=== PATIENT | male | born 1955 | race Caucasian/White ===

== ENCOUNTER 2021-09-14 18:22 | Emergency (ER) | payer MEDICARE ==
[2021-09-14] MEDS ORDERED: Ibuprofen 600 MG Tab PO ONE (18:38)
[2021-09-14] MEDS ORDERED: Acetaminophen/HYDROcodone 325-5 MG Tab PO ONE (18:39)
== END 2021-09-14 19:23 | disposition home or self-care (01) ==
LOC: JP.ED 18:22
DX: T23.251A Burn of second degree of right palm, initial encounter (principal); Z88.5 Allergy status to narcotic agent; X15.0XXA Contact with hot stove (kitchen), initial encounter
CPT/HCPCS: 99283; A9270

== ENCOUNTER 2023-02-10 05:52 | Day surgery (SDC) | payer MEDICARE ==
[2023-02-10] MEDS ORDERED: Dextrose 5%-Lactated Ringers 1,000 ML IV SCH (06:30)
[2023-02-10] MEDS ORDERED: fentaNYL 50 MCG/ML SDV ONE (06:55)
[2023-02-10] MEDS ORDERED: Midazolam 1 MG/ML 2 ML SDV ONE (06:55)
[2023-02-10] MEDS ORDERED: Propofol 200 MG/20 ML SDV ONE (06:55)
== END 2023-02-10 08:53 | disposition home or self-care (01) ==
LOC: JP.SDS 05:52
PROVIDERS: ATTEND Surgery
DX: K20.90 Esophagitis, unspecified without bleeding (principal); K22.89 Other specified disease of esophagus; K22.70 Barrett's esophagus without dysplasia; K44.9 Diaphragmatic hernia without obstruction or gangrene; J44.9 Chronic obstructive pulmonary disease, unspecified; I25.10 Atherosclerotic heart disease of native coronary artery without angina pectoris; E11.9 Type 2 diabetes mellitus without complications; F17.200 Nicotine dependence, unspecified, uncomplicated; Z79.899 Other long term (current) drug therapy; Z88.5 Allergy status to narcotic agent
CPT/HCPCS: 43239; 87081; 88305; J2250; J2704; J3010; J7121

== ENCOUNTER 2023-02-20 05:23 | Day surgery (SDC) | payer MEDICARE ==
[2023-02-20] MEDS ORDERED: Celecoxib 200 MG Cap PO ONE (05:30)
[2023-02-20] MEDS ORDERED: Dextrose 5%-Lactated Ringers 1,000 ML IV SCH (06:00)
[2023-02-20] MEDS ORDERED: Albuterol/Ipratropium 3.0-0.5 MG/3 ML Neb Soln NEB ONE (06:30)
[2023-02-20] MEDS ORDERED: Lidocaine 1% with EPINEPHrine 1:100,000 50 ML MDV ONE (06:43)
[2023-02-20] MEDS ORDERED: Bupivacaine 0.5% 50 ML MDV ONE (06:43)
[2023-02-20] MEDS ORDERED: Ondansetron 4 MG/2 ML SDV ONE (07:00)
[2023-02-20] MEDS ORDERED: Glycopyrrolate 0.2 MG/ML 5 ML MDV ONE (07:00)
[2023-02-20] MEDS ORDERED: Neostigmine Methylsulfate 1 MG/ML 5 ML Syringe ONE (07:00)
[2023-02-20] MEDS ORDERED: Succinylcholine 200 MG/10 ML MDV ONE (07:00)
[2023-02-20] MEDS ORDERED: Dexamethasone 4 MG/ML SDV ONE (07:00)
[2023-02-20] MEDS ORDERED: fentaNYL 250 MCG/5 ML SDV ONE (07:00)
[2023-02-20] MEDS ORDERED: Rocuronium 50 MG/5 ML Vial ONE (07:00)
[2023-02-20] MEDS ORDERED: Propofol 200 MG/20 ML SDV ONE (07:00)
[2023-02-20] MEDS ORDERED: cefOXitin 2 GM in Sodium Chloride 0.9% 50 ML IV ONE (07:00)
[2023-02-20] MEDS ORDERED: Indocyanine Green 25 MG SDV IV SCH (07:30)
[2023-02-20] MEDS ORDERED: Ketamine 500 MG/5 ML MDV IV SCH (07:45)
[2023-02-20] MEDS ORDERED: Ketamine 23 MG in Sodium Chloride 0.9% 19.77 ML IV SCH (07:45)
[2023-02-20] MEDS ORDERED: Labetalol 20 MG/4 ML Syringe ONE (08:16)
[2023-02-20] MEDS ORDERED: fentaNYL 100 MCG/2 ML SDV ONE (08:58)
[2023-02-20] MEDS ORDERED: oxyCODONE 5 MG Tab PO PRN (10:11)
[2023-02-20] MEDS ORDERED: Acetaminophen 500 MG Tab PO PRN (10:21)
[2023-02-20] MEDS ORDERED: Ondansetron 4 MG/2 ML SDV IVPUSH PRN (10:34)
[2023-02-20] MEDS ORDERED: Metoclopramide 10 MG/2 ML SDV IVPUSH PRN (10:35)
[2023-02-20] MEDS ORDERED: HYDROmorphone 1 MG/ML Syringe IV PRN (11:00)
[2023-02-20] MEDS ORDERED: HYDROmorphone 0.5 MG/0.5 ML Syringe IVPUSH PRN (11:00)
== END 2023-02-20 12:30 | disposition home or self-care (01) ==
LOC: JP.SDS 05:23
PROVIDERS: ATTEND Surgery
DX: K80.00 Calculus of gallbladder with acute cholecystitis without obstruction (principal); K42.0 Umbilical hernia with obstruction, without gangrene; K82.8 Other specified diseases of gallbladder; I10 Essential (primary) hypertension; E11.59 Type 2 diabetes mellitus with other circulatory complications; I25.10 Atherosclerotic heart disease of native coronary artery without angina pectoris; M79.7 Fibromyalgia; G47.09 Other insomnia; E78.5 Hyperlipidemia, unspecified; F32.A Depression, unspecified; E66.9 Obesity, unspecified; Z88.5 Allergy status to narcotic agent; Z91.038 Other insect allergy status; Z98.890 Other specified postprocedural states; Z87.891 Personal history of nicotine dependence; Z79.899 Other long term (current) drug therapy; Z79.82 Long term (current) use of aspirin
CPT/HCPCS: 47562; 88302; 88304; 93005; 94640; A9270; J0131; J0171; J0330; J0694; J1100; J2405; J2704; J2710; J2795; J3010; J3490; J7121; J7620

== ENCOUNTER 2023-09-10 10:06 | Emergency (ER) | payer MEDICARE ==
[2023-09-10 11:12] LABS: INFLUENZA A NAA NEGATIVE (NEGATIVE); INFLUENZA B NAA NEGATIVE (NEGATIVE); RESPIRATORY SYNCYTIAL VIR NAA NEGATIVE (NEGATIVE)
[2023-09-10 11:15] LABS: CORONAVIRUS COVID-19 NAA POSITIVE (NEGATIVE)
[2023-09-10] MEDS ORDERED: Acetaminophen 325 MG Tab PO ONE (11:33)
[2023-09-10 11:55] LABS: BASOPHILS ABSOLUTE AUTO 0.03 K/uL (0.00-0.10); BASOPHILS PERCENT AUTO 0.3 % (0.1-1.3); EOSINOPHILS PERCENT AUTO 0.1 % (0.0-5.4); IMMATURE GRAN ABSOLUTE AUTO 0.04 K/uL (0.00-0.23); IMMATURE GRAN PERCENT AUTO 0.3 % (0.0-0.7); LYMPHOCYTES ABSOLUTE AUTO 1.13 K/uL (0.8-3.3); LYMPHOCYTES PERCENT AUTO 9.9 % (11.4-47.7); MEAN CORPUSCULAR HEMOGLOBIN 31.5 pg (31.6-35.5); MEAN CORPUSCULAR HGB CONC 34.9 g/dL (31.6-35.5); MEAN CORPUSCULAR VOLUME 90.3 fL (81.4-99.0); MONOCYTES ABSOLUTE AUTO 0.88 K/uL (0.20-0.90); MONOCYTES PERCENT AUTO 7.7 % (3.3-12.6); NEUTROPHILS ABSOLUTE AUTO 9.35 K/uL (1.0-7.6); NEUTROPHILS PERCENT AUTO 81.7 % (40.0-78.1); PLATELET COUNT,PLT 242 K/uL (130-375); RED BLOOD CELL COUNT 4.76 M/uL (4.14-5.76); WHITE BLOOD CELL COUNT,WBC 11.4 K/uL (3.2-11.0)
[2023-09-10 11:58] LABS: EOSINOPHILS ABSOLUTE AUTO 0.01 K/uL (0.00-0.40)
[2023-09-10 12:15] LABS: A/G RATIO 1.5 (1.2-2.2); ALANINE AMINOTRANSFERASE,ALT 59 U/L (12-78); ALBUMIN 4.1 g/dL (3.4-5.0); ALKALINE PHOSPHATASE 98 U/L (46-116); ASPARTATE AMNIOTRANSFERASE,AST 28 U/L (15-37); BILIRUBIN TOTAL 1.4 mg/dL (0.2-1.0); BLOOD UREA NITROGEN,BUN 15 mg/dL (7-18); CALCIUM 8.9 mg/dL (8.5-10.1); CARBON DIOXIDE,CO2 25 mmol/L (21-32); CHLORIDE,CL 102 mmol/L (100-108); CREATININE 0.8 mg/dL (0.8-1.3); EST CRCL DRUG DOSING (CG) 99.88 mL/min; ESTIMATED GFR 96 mL/min (>60); GLUCOSE RANDOM 82 mg/dL (74-106); POTASSIUM,K 3.8 mmol/L (3.6-5.2); PROTEIN TOTAL,TP 6.9 g/dL (6.4-8.2); SODIUM,NA 137 mmol/L (140-148)
[2023-09-10 12:17] LABS: ANION GAP 13.8 mmol/L (5.0-14.0)
== END 2023-09-10 12:46 | disposition home or self-care (01) ==
LOC: JP.ED 10:06
DX: U07.1 COVID-19 (principal); I10 Essential (primary) hypertension; J44.9 Chronic obstructive pulmonary disease, unspecified; K21.9 Gastro-esophageal reflux disease without esophagitis; M19.90 Unspecified osteoarthritis, unspecified site; E11.9 Type 2 diabetes mellitus without complications; Z87.891 Personal history of nicotine dependence; Z79.4 Long term (current) use of insulin; Z79.84 Long term (current) use of oral hypoglycemic drugs; Z79.899 Other long term (current) drug therapy; Z79.82 Long term (current) use of aspirin; Z88.8 Allergy status to other drugs, medicaments and biological substances; Z91.030 Bee allergy status
CPT/HCPCS: 0241U; 36415; 80053; 85025; 99283; A9270

== ENCOUNTER 2024-06-14 13:42 | Emergency (ER) | payer MEDICARE ==
[2024-06-14] MEDS: Bacitracin Oint 1 GM U/D Packet TOP ONE (14:33)
[2024-06-14] MEDS: Lidocaine 1% 20 ML MDV INFILT ONE (14:33)
== END 2024-06-14 15:29 | disposition home or self-care (01) ==
LOC: JP.ED 13:42
DX: S61.211A Laceration without foreign body of left index finger without damage to nail, initial encounter (principal); I10 Essential (primary) hypertension; E11.9 Type 2 diabetes mellitus without complications; K21.9 Gastro-esophageal reflux disease without esophagitis; M19.90 Unspecified osteoarthritis, unspecified site; Z90.49 Acquired absence of other specified parts of digestive tract; Z91.038 Other insect allergy status; Z88.5 Allergy status to narcotic agent; Z79.82 Long term (current) use of aspirin; Z79.4 Long term (current) use of insulin; Z79.899 Other long term (current) drug therapy; W26.0XXA Contact with knife, initial encounter
CPT/HCPCS: 12001; 99282

== ENCOUNTER 2025-02-06 06:45 | Day surgery (SDC) | payer MEDICARE ==
[2025-02-06] MEDS ORDERED: Midazolam 1 MG/ML 2 ML SDV ONE (07:19)
[2025-02-06] MEDS ORDERED: Propofol 200 MG/20 ML SDV ONE ×2 (07:19→09:03)
[2025-02-06] MEDS ORDERED: fentaNYL 100 MCG/2 ML SDV ONE (07:19)
[2025-02-06] MEDS: Lactated Ringers 1,000 ML IV SCH (07:27)
== END 2025-02-06 11:04 | disposition home or self-care (01) ==
LOC: JP.SDS 06:45
PROVIDERS: ATTEND Surgery
DX: D12.2 Benign neoplasm of ascending colon (principal); K21.9 Gastro-esophageal reflux disease without esophagitis; K22.89 Other specified disease of esophagus; I10 Essential (primary) hypertension; E11.9 Type 2 diabetes mellitus without complications; J44.9 Chronic obstructive pulmonary disease, unspecified; E78.5 Hyperlipidemia, unspecified; E66.9 Obesity, unspecified
CPT/HCPCS: 00813; 43239; 45385; 88305; J2250; J2704; J3010; J7120

== ENCOUNTER 2025-08-14 07:15 | Day surgery (SDC) | payer MEDICARE ==
[2025-08-14] MEDS ORDERED: Propofol 200 MG/20 ML SDV ONE (07:33)
[2025-08-14] MEDS ORDERED: fentaNYL 50 MCG/ML SDV ONE (07:34)
[2025-08-14] MEDS: Lactated Ringers 1,000 ML IV SCH (07:49)
== END 2025-08-14 10:37 | disposition home or self-care (01) ==
LOC: JP.SDS 07:15
PROVIDERS: ATTEND Surgery
DX: Z12.11 Encounter for screening for malignant neoplasm of colon (principal); K57.30 Diverticulosis of large intestine without perforation or abscess without bleeding; I10 Essential (primary) hypertension; E11.9 Type 2 diabetes mellitus without complications; Z88.8 Allergy status to other drugs, medicaments and biological substances; Z79.82 Long term (current) use of aspirin; Z79.84 Long term (current) use of oral hypoglycemic drugs; Z79.899 Other long term (current) drug therapy; Z86.0100 Personal history of colon polyps, unspecified
CPT/HCPCS: G0121; J2704; J3010; J7120; 00812-QZ